=== PATIENT | male | born 1960 | race Caucasian/White ===

== ENCOUNTER 2019-02-12 08:48 | Day surgery (SDC) | payer BC ==
[2019-02-07 12:18] VITALS: BMI 25.0
[~2019-02-12 08:48] MED LIST: LIDOCAINE 1% 20 ML VIAL (10MG/ML) FOR IV START INTRADERMA PRN
[2019-02-12] MEDS: LACTATED RINGERS 1,000 ML IV SCH ×2 (09:10→09:38)
[2019-02-12 09:19] VITALS: RESP 16; TEMP 97.1
[2019-02-12] MEDS ORDERED: PROPOFOL 10 MG/ML 20 ML VIAL IV ONE (09:42)
--- NOTE | 2019-02-12 10:12 | P.PCN ---
Date of Procedure: 02/12/19 Description of Procedure: BRIEF HISTORY: 58-year-old male who presents for outpatient colonoscopy for screening. Denies any change in bowel habits, abdominal pain or blood per rectum. No family history of colon cancer. Last colonoscopy approximately 4 years ago per his recollection. He does report polyps in the past. PROCEDURE PERFORMED: Colonoscopy with polypectomy. PREOPERATIVE DIAGNOSIS: Screening for malignant neoplasm of the colon, last colonoscopy approximately 4 years ago per his recollection. ESTIMATED BLOOD LOSS: Minimal. IV sedation per Anesthesia. PROCEDURE: After informed consent was obtained, the patient, was brought into the endoscopy unit. IV sedation was administered by Anesthesia under continuous monitoring. Digital rectal examination was normal. Initially the Olympus CF-190 flexible video colonoscope was then inserted in the rectum, gradually advanced into the cecum without any difficulty. Careful examination was performed as the scope was gradually being withdrawn. Ileocecal valve and the appendiceal orifice were visualized and appeared normal. Prep was excellent. Mucosa of the cecum, ascending colon, transverse colon, descending colon, sigmoid colon, and rectum appeared normal. A diminutive 3 mm descending colon polyp completely removed with cold forcep polypectomy. Multiple diminutive hyperplastic-appearing polyps in the sigmoid colon and rectum removed with cold forcep polypectomy. Retroflexion was performed in the rectum and no lesions were seen. The patient tolerated the procedure well. IMPRESSION: Diminutive descending colon polyp removed with cold forcep polypectomy. Multiple hyperplastic-appearing polyps removed from the sigmoid colon and rectum with cold forcep polypectomy. RECOMMENDATIONS: Findings of this examination were discussed with the patient and his sister. Okay to resume diet and medications. Anticipate repeat colonoscopy in 5 years for personal history of colon polyps. Await pathology from polypectomies.
[2019-02-12 10:34] VITALS: BP 124/77; PULSE 64
== END 2019-02-12 11:54 | disposition home or self-care (01) ==
LOC: ORWHC2ENDO 08:48
PROVIDERS: ATTEND Internal Medicine
DX: Z12.11 Encounter for screening for malignant neoplasm of colon (principal); D12.4 Benign neoplasm of descending colon; K63.5 Polyp of colon; K62.1 Rectal polyp; Z86.010 Personal history of colon polyps; I10 Essential (primary) hypertension; F17.210 Nicotine dependence, cigarettes, uncomplicated; G43.909 Migraine, unspecified, not intractable, without status migrainosus; Z87.311 Personal history of (healed) other pathological fracture; Z97.2 Presence of dental prosthetic device (complete) (partial); Z79.899 Other long term (current) drug therapy
CPT/HCPCS: 88305; 45380; J2704

== ENCOUNTER 2019-08-29 14:13 | Emergency (ER) | payer BC ==
[2019-08-29] MEDS ORDERED: HYDROcodone/APAP 5-325MG 1 EACH TAB PO STA (14:47)
[2019-08-29] MEDS ORDERED: KETOROLAC 60 MG/2 ML VIAL IM STA (14:47)
[2019-08-29] MEDS ORDERED: ORPHENADRINE 30 MG/ML 2 ML VIAL IM STA (14:48)
--- NOTE | 2019-08-29 14:51 | ED ---
Lower Extremity Injury HPI - General Chief Complaint: Extremity Injury, Lower Stated Complaint: R Hip Pain Time Seen by Provider: 08/29/19 14:38 Source: patient, RN notes reviewed, old records reviewed Mode of arrival: wheelchair Limitations: no limitations - History of Present Illness Initial Comments: Patient is a 5-year-old male who presents emergency Department today with 1 month of right hip and lower back pain after lifting cement blocks. Patient reports he followed with his primary care doctor and was given muscle relaxers and steroids. He reports he isn't taking them that the pain is continuing to persist. He states that on Tuesday it was more severe and he laid on the couch most of the day. Patient reports Tuesday is feeling better and then decided to mow the lawn and yard work. He states since that time has had worsening pain. He saw his PCP on Tuesday and was prescribed his medications. He states that the pain seems to not be managed with those and was sent here for further evaluation. He denies saddle anesthesia. Denies any abdominal pain, nausea or vomiting. - Related Data Home Medications Medication Instructions Recorded Confirmed Ramipril 10 mg PO DAILY 02/07/19 02/12/19 Previous Rx's Medication Instructions Recorded Acetaminophen with Codeine 1 tab PO Q6H PRN 3 Days #12 tab 08/29/19 [Tylenol w/codeine #3] Allergies Allergy/AdvReac Type Severity Reaction Status Date / Time No Known Allergies Allergy Verified 08/29/19 14:35 Review of Systems ROS Statement: Those systems with pertinent positive or pertinent negative responses have been documented in the HPI. ROS Other: All systems not noted in ROS Statement are negative. Past Medical History Past Medical History: Hypertension Additional Past Medical History / Comment(s): MIGRAINE, SINUS ISSUES. HX COMPRESSION FX IN BACK 2014 History of Any Multi-Drug Resistant Organisms: None Reported Past Surgical History: Appendectomy, Tonsillectomy Past Anesthesia/Blood Transfusion Reactions: No Reported Reaction Past Psychological History: No Psychological Hx Reported Smoking Status: Current every day smoker Past Alcohol Use History: Occasional Past Drug Use History: None Reported - Past Family History Mother Family Medical History: No Reported History General Exam - General Exam Comments Initial Comments: 59 yo male, no distress. Limitations: no limitations General appearance: alert, in no apparent distress Head exam: Present: atraumatic Eye exam: Present: normal appearance, PERRL, EOMI. Absent: scleral icterus, conjunctival injection, periorbital swelling ENT exam: Present: normal exam, mucous membranes moist Neck exam: Present: normal inspection. Absent: tenderness, meningismus, lymphadenopathy Respiratory exam: Present: normal lung sounds bilaterally. Absent: respiratory distress, wheezes, rales, rhonchi, stridor Cardiovascular Exam: Present: regular rate, normal rhythm, normal heart sounds. Absent: systolic murmur, diastolic murmur, rubs, gallop, clicks GI/Abdominal exam: Present: soft, normal bowel sounds. Absent: distended, tenderness, guarding, rebound, rigid Extremities exam: Present: normal inspection, full ROM, normal capillary refill. Absent: tenderness, pedal edema, joint swelling, calf tenderness Back exam: Present: normal inspection, full ROM, tenderness (right hip and sciatic notch tenderness), CVA tenderness (R) Neurological exam: Present: alert, oriented X3, CN II-XII intact Psychiatric exam: Present: normal affect, normal mood Skin exam: Present: warm, dry, intact, normal color. Absent: rash Course Vital Signs 08/29/19 14:31 Temperature 98.2 F Pulse Rate 95 Respiratory 18 Rate Blood Pressure 146/97 O2 Sat by Pulse 98 Oximetry Medical Decision Making - Medical Decision Making Sean is a 5-year-old male presents emergency department today for complaints of lower back pain with radiation towards the right hip. He complains of pain from the lateral aspect of the hip all the way to the knee. Patient's symptoms started after heavy lifting a month ago. He was prescribed steroids and muscle relaxers by PCP but had persistent pain today. Patient at this time was given IM Toradol and Norflex. His pain is reproducible with movement. He has no saddle anesthesia. Lumbar spine x-ray shows evidence of degenerative changes mildly with no compression fracture. Hip and pelvis x-rays show no acute fracture. I discussed at this time continuing them a fractures and steroids. Advised Patient to use a short course of pain medication is given emergency department. Discussed appropriate follow-up with orthopedic symptoms continue persist. All questions answered. - Radiology Data Radiology results: report reviewed No fracture dislocation in the pelvis or right hip. Bilateral sacroiliitis is redemonstrated. Lumbar spine shows slight level convex sclerotic curvature centered and L3 level without evidence of acute fracture dislocation. Some straightening of the lumbar spine on the lateral images. Lumbar vertebral height and screens are normal. Vascular calcification over the abdominal aorta is redemonstrated. mild chronic compression fracture T12 endplate reversed lancing to previous computed tomography scan. Disposition Clinical Impression: Right hip pain, Lumbar back pain Disposition: HOME SELF-CARE Condition: Good Instructions (If sedation given, give patient instructions): Low Back Strain (ED), Sacroiliitis (ED) Additional Instructions: Please use medication as discussed and continue the muscle relaxer and anti- inflammatory medicine and steroids as prescribed. Recommended following up with employment training specialist.. Please follow up with family doctor if symptoms have not improved over the next two days. Please return to the emergency room if your symptoms increase or worsen or for any other concerns. Prescriptions: Acetaminophen with Codeine [Tylenol w/codeine #3] 1 tab PO Q6H PRN 3 Days #12 tab PRN Reason: Pain Is patient prescribed a controlled substance at d/c from ED?: Yes If prescribed controlled substance>3 days was MAPS reviewed?: Prescribed <3 Days If opioid is for acute pain is fill amount 7 days or less?: Yes If Rx opioid, was Start Talking consent form obtained?: Yes Referrals: Lesly Wilks DO [Primary Care Provider] - 1-2 days Poli Michael MD [STAFF PHYSICIAN] - 1-2 days Time of Disposition: 16:04
--- NOTE | 2019-08-29 15:36 | XR ---
EXAMINATION TYPE: XR lumbar spine 2 or 3V DATE OF EXAM: 08/29/2019 CLINICAL HISTORY: Pain after heavy lifting injury. TECHNIQUE: Frontal and lateral images of the lumbar spine are obtained. COMPARISON: CT September 10, 2014 FINDINGS: There are 5 lumbar type vertebral bodies redemonstrated. The lumbar spine redemonstrates slight levoconvex scoliotic curvature centered at L3 level without evidence of acute fracture or disl ocation. There is some straightening of the lumbar spine on the lateral images redemonstrated. Verteb ral body heights and disk space heights remain within normal limits. Vascular calcification overlying abdominal aorta is redemonstrated. Mild chronic compression fracture superior T12 endplate correspon ds to CT. IMPRESSION: No new acute fracture or dislocation is seen in the lumbar spine.
--- NOTE | 2019-08-29 15:38 | XR ---
EXAMINATION TYPE: XR Hip RT and AP Pelvis DATE OF EXAM: 08/29/2019 COMPARISON: CT September 10, 2014 HISTORY: Pelvic and right hip pain after lifting injury. TECHNIQUE: A single AP view of the pelvis is obtained. Two views of the right hip are obtained. FINDINGS: There is no acute fracture/dislocation evident in the pelvis. There is moderate narrowing and sclerosis bilateral sacroiliac joints greater inferiorly. Symmetric mild axial joint space loss i n both hips. Pubic symphysis is intact. The overlying soft tissue appears unremarkable. Two views of right hip show no acute fracture or dislocation. Stable small sclerotic focus femoral ne ck level corresponds to cortical based lesion coronal image 38 presumed benign. The overlying soft t issue is unremarkable. IMPRESSION: There is no acute fracture or dislocation in the pelvis or right hip. Bilateral sacroili itis redemonstrated.
[2019-08-29 16:36] VITALS: BP 151/85; PULSE 58; RESP 16; TEMP 98.7
== END 2019-08-29 16:30 | disposition home or self-care (01) ==
LOC: EC 14:13
DX: M25.551 Pain in right hip (principal); M54.5 Low back pain; I10 Essential (primary) hypertension; Z79.899 Other long term (current) drug therapy; F17.200 Nicotine dependence, unspecified, uncomplicated
CPT/HCPCS: 99284; 96372 ×2; 72100; 73502; J2360; J1885

== ENCOUNTER → 2019-11-12 | Outpatient (CLI) | payer BC ==
--- NOTE | 2019-11-14 06:19 | MR ---
EXAMINATION TYPE: MR lumbar spine wo con DATE OF EXAM: 11/12/2019 COMPARISON: Lumbar radiograph 08/29/2019 HISTORY: Low back and right hip pain TECHNIQUE: Multiplanar, multisequence images of the lumbar spine were acquired. There is mild straightening of the lumbar lordosis. Vertebral body heights are preserved. Vertebral b one marrow is normal in signal. Multilevel degenerative disc disease, as described by level below. Multilevel disc desiccation. Lower thoracic cord is normal in signal. Conus terminates normally at L1. At the level of L2-L3 there is a n intradural 7 x 7 x 6 mm round mass within the center of the canal adjacent to the nerve roots, whic h is T2 mildly hyperintense to the nerve roots and hypointense to CSF, with tiny T2 bright hyperinten se foci (501:18, 301:8), and T1 isointense (601:19). There is no significant displacement of the nerv e roots. Paraspinal soft tissues are unremarkable. Visualized upper sacroiliac joints appear intact. T12-L1: No posterior disc herniation, protrusion, or bulging. No canal stenosis. Foramina are patent bilaterally. L1-L2: No posterior disc herniation, protrusion, or bulging. No canal stenosis. Foramina are patent b ilaterally. L2-L3: No posterior disc herniation, protrusion, or bulging. No canal stenosis. Foramina are patent b ilaterally. L3-L4: Mild bulging effacing the ventral aspect of the thecal sac. No canal stenosis. Mild left neura l foramina narrowing. L4-L5: Mild bulging effacing the ventral aspect of the thecal sac. Ligamentum flavum thickening. No c anal stenosis. Mild right and moderate left neural foramina narrowing. L5-S1: Mild bulging. No canal stenosis. Mild right neural foraminal narrowing. IMPRESSION: 1. Intradural 7 mm round mass at the level of L2-L3 associated with the cauda equina nerve roots, wi thout nerve root displacement or significant mass effect. Follow-up MRI lumbar spine with intravenous contrast is recommended for further characterization. 2. Degenerative changes with no canal stenosis. Neural foramina narrowing of the inferior lumbar spi ne as above.
== END | disposition home or self-care (01) ==
LOC: RADMRIMAIN 10:20
PROVIDERS: ATTEND Family Medicine
DX: M48.061 Spinal stenosis, lumbar region without neurogenic claudication (principal); M48.07 Spinal stenosis, lumbosacral region; M47.816 Spondylosis without myelopathy or radiculopathy, lumbar region
CPT/HCPCS: 72148

== ENCOUNTER → 2019-11-26 | Outpatient (CLI) | payer BC ==
--- NOTE | 2019-11-27 05:49 | MR ---
EXAMINATION TYPE: MR lumbar spine w con DATE OF EXAM: 11/26/2019 COMPARISON: MRI lumbar spine November 12, 2019. Lumbar spine x-ray August 29, 2019. HISTORY: LBP, rt hip pain, abnormal recent MRI TECHNIQUE: Multiplanar, multisequence images of the lumbar spine is performed with IV contrast, utilizing 7.5 mL intravenous Gadavist FINDINGS: Postcontrast images show fairly homogeneous prominent enhancement of the oval well-defined lesion centered L2-L3 disc space measuring 8 x 8 x 7 mm axial image 20 and sagittal image 8. Lesion s lightly hypointense to muscle on T1 and hyperintense on T2-weighted images. Lesion appears separate f rom the nerve roots and is confirmed extra medullary intradural in location. There is also enhancement involving the posterior superior S1 endplate, suspected Schmorl node, reaso n for enhancement uncertain. Larger Schmorl node anterior superior T12 endplate with mild height loss redemonstrated. IMPRESSION: As above. There is 8 mm homogeneous enhancing lesion likely reflecting neoplasm, meningio ma is favored. Neurosurgical consultation is advised.
== END | disposition home or self-care (01) ==
LOC: RADMRIMAIN 21:44
PROVIDERS: ATTEND Family Medicine
DX: M89.9 Disorder of bone, unspecified (principal)
CPT/HCPCS: 72149; A9585

== ENCOUNTER → 2020-09-23 | Outpatient (CLI) | payer BC ==
--- NOTE | 2020-09-24 13:35 | P.ARTDOP ---
Arterial Doppler LOWER EXTREMITY ARTERIAL DOPPLER: DATE OF SERVICE: 09/23/2020 Reason for study: Left leg heaviness. Doppler waveforms: Multiphasic throughout on the right. Atypical throughout on the left.. Pulse volume recording: []. Pressure gradients: None on the right. Mild gradient proximally and across the knee. Ankle-brachial indices: Greater than 1 on the right and 0.8 on the left. Toe brachial indices: 0.96 on the right and 0.76 on the left on the right, Impression: The right side is normal. The left suggests mild left fem-pop disea se with possible iliac component.
== END | disposition home or self-care (01) ==
LOC: RADUSWWP 10:13
PROVIDERS: ATTEND Family Medicine
DX: I70.213 Atherosclerosis of native arteries of extremities with intermittent claudication, bilateral legs (principal)
CPT/HCPCS: 93923

== ENCOUNTER → 2021-10-30 | Outpatient (CLI) | payer BC ==
--- NOTE | 2021-10-30 12:59 | MR ---
EXAMINATION TYPE: MR iac wo/w con DATE OF EXAM: 10/30/2021 COMPARISON: NONE HISTORY: Hearing loss, more so right, tinnitus TECHNIQUE: Multiplanar, multisequence images of the brain and brainstem is performed without and with IV contras t, utilizing 8 mL intravenous Gadavist . Acoustic nerve disorder protocol. FINDINGS: Diffusion weighted images demonstrate no evidence of a recent infarct or other diffusion ab normality. The ventricular system and cisternal spaces are normal in size and appearance. The brain volume is age appropriate. Some small scattered foci of T2 hyperintensity are identified throughout t he white matter bilaterally. Approximately 15-20 scattered lesions are seen. The lesions are nonspeci fic in appearance and distribution. Midline structures demonstrate normal morphology. The craniocervical junction appears within normal limits. There is abnormal flow void right medial temporal region suggestive of vascular malformation possible AVM or venous angioma adjacent to tortuous vessel seen best on T2 axial images 13 and 14. In cidental dominant left vertebral artery filling the basilar artery. Globes are intact and visualized paranasal sinuses are clear. No suspicious fluid signal in the mastoid air cells bilaterally. Vestibulocochlear complexes are symm etric and felt within normal limits. No suspicious enhancing cerebellopontine angle mass is identifie d bilaterally. IMPRESSION: 1. No definitive finding to comfort patient's symptoms of right greater than left hearing loss and ti nnitus. Mild nonspecific white matter changes favor product of chronic small vessel ischemic change i n patient of this age. Vascular malformation medial right temporal region noted and may warrant furth er clinical and imaging workup if old outside contrast-enhanced CT or MRI is not available for direct comparison.
== END | disposition home or self-care (01) ==
LOC: RADMRIMAIN 11:36
PROVIDERS: ATTEND Otolaryngology
DX: H93.11 Tinnitus, right ear (principal)
CPT/HCPCS: 70553; A9585

== ENCOUNTER → 2022-03-09 | Outpatient (CLI) | payer BC ==
--- NOTE | 2022-03-09 13:05 | CT ---
EXAMINATION TYPE: CT angio abd aorta w/Runoff DATE OF EXAM: 03/09/2022 COMPARISON: CT chest abdomen and pelvis September 10, 2014 HISTORY: Claudication of bilateral legs. CT DLP: 1708.9 mGycm, Automated Exposure Control for Dose Reduction was Utilized. CONTRAST: CTA scan of the abdomen and pelvis with bilateral lower extremity runoff is performed without oral an d without and with IV Contrast, patient injected with 120ml mL of Isovue 370. Three-D reconstructed i mages were created on an independent workstation and reviewed. FINDINGS: Vascular: Patent celiac artery and SMA with narrowing around 50% at celiac artery origin sagittal iveth ge 83 and 82. Correlate for celiac artery compression syndrome. Patent bilateral single renal arterie s without significant plaque or stenosis. Patent IVETH. Moderate to severe mixed plaque in the abdomina l aorta extends into iliac branch vessels. There is mild to moderate calcified plaque in the right common iliac artery. There is severe plaque w ith complete occlusion shortly after origin of the left common iliac artery. Some reconstitution at t he bifurcation is seen. Moderate mixed plaque in the left external iliac artery is seen without signi ficant stenosis. No significant plaque or stenosis in the right external iliac artery. Mild to moderate mixed plaque in the common femoral artery without significant stenosis on the right. Mild to moderate mixed plaque left common femoral artery without significant stenosis. No significan t plaque or stenosis along the course of the right superficial femoral artery. No significant Plaque or stenosis in the right popliteal artery. Focal mild to moderate mixed plaque in the mid to distal l eft superficial femoral artery without significant stenosis. No significant plaque or stenosis along the left popliteal artery. Symmetric satisfactory bifurcation and trifurcation with good three-vessel flow along the mid to dist al leg in good two-vessel flow in the distal right leg. There is nonvisualized suspected occluded dis betsy left anterior tibial artery beginning at level of the distal talus when correlating with opposite right side. LUNG BASES: Coronary artery calcification in the distal RCA is seen. LIVER/GB: No significant abnormality is appreciated. PANCREAS: No significant abnormality is seen. SPLEEN: No significant abnormality is seen. ADRENALS: No significant abnormality is seen. KIDNEYS: No significant abnormality is seen. BOWEL: No significant abnormality is seen. PROSTATE/SEMINAL VESICLES: Enlarged prostate consistent with BPH. LYMPH NODES: No greater than 1cm abdominal or pelvic lymph nodes are appreciated. OSSEOUS STRUCTURES: No significant abnormality is seen. LOWER EXTREMITIES: Asymmetric moderate atrophy of the anteromedial left leg muscle beginning just bel ow the knee joint extending through the common axial image 47 for reference. OTHER: No significant additional abnormality is seen. IMPRESSION: 1. 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 Reconstitution and ed gin of the left external iliac artery noted. Poor visualized flow suspected complete occlusion of the distal left anterior tibial artery beginning just proximal to the ankle joint.
== END | disposition home or self-care (01) ==
LOC: RADCTMAIN 10:10
PROVIDERS: ATTEND Surgery
DX: I74.5 Embolism and thrombosis of iliac artery (principal); I74.3 Embolism and thrombosis of arteries of the lower extremities
CPT/HCPCS: 82565; 84520; 75635; 36415; Q9967

== ENCOUNTER → 2024-02-15 | Outpatient (CLI) | payer BC ==
--- NOTE | 2024-02-15 13:05 | CTL ---
EXAMINATION TYPE: CT Low Dose Lung DATE OF EXAM ORDERED: 02/15/2024 COMPARISON: None CLINICAL INDICATION: Male, 63 years old with history of F17.210 Nicotine dependence; PHH, personal to bacco use, Lung cancer screening, History of Smoking/tobacco use. TECHNIQUE: Low dose computed tomography scan was performed through the chest at 1 mm thick sections a nd reconstructed images in multiple planes at 1 mm and [address] DLP: [address] CTDI: 1.9 mGy Automated exposure control for dose reduction was used. CT DIAGNOSTIC QUALITY: Satisfactory FINDINGS: Nodules: Few pulmonary nodules with exams including a right lower lobe 2.9 mm nodule (series 6, image 29), lef t upper lobe 2.7 mm pulmonary nodule (series 6, image 13), lateral left upper lobe 3.7 mm pulmonary n odule (series 6, image 28), lateral left lower lobe pulmonary nodule measuring 4.1 mm (series 6, imag e 43). Lateral left lower lobe pulmonary nodule measuring 4.3 mm (series 6, image 50). LUNGS: COPD: Severity: Mild paraseptal emphysematous changes. Fibrosis: Severity: None Lymph nodes: None Other findings: Mild biapical pleural-parenchymal scarring. Reticular and nodular opacities identifie d within the right middle lobe. RIGHT PLEURAL SPACE: Effusion: None Calcification: None Thickening: None Pneumothorax: None LEFT PLEURAL SPACE: Effusion: None Calcification: None Thickening: None Pneumothorax: None HEART: Heart Size: Normal Coronary Calcification: Small Pericardial Effusion: None OTHER FINDINGS: Upper abdomen: None Bony thorax: Schmorl's node involving the superior endplate of the T12 vertebral body. Supraclavicular region: None Other: Ascending thoracic aortic aneurysm measuring up to 4.2 cm. Mild atherosclerotic calcification of the aorta and its branches. IMPRESSION: 1. Few scattered pulmonary nodules measuring less than 5 mm. 2. Reticular and nodular opacities within the right middle lobe suggesting an infectious/inflammator y process. 3. Ascending thoracic aortic aneurysm measuring 4.[address] LUNG RAD AND CT CHEST RECOMMENDATION: Lung-Rad 2 Benign Appearance or Behavior: Continue annual sc reening with LDCT in 12 months. S Modifier (other clinically significant findings): S [facility], , 02/15/2024 1:03 PM
== END | disposition home or self-care (01) ==
LOC: RADCTMAIN 11:09
PROVIDERS: ATTEND Family Medicine
DX: J43.9 Emphysema, unspecified (principal); F17.210 Nicotine dependence, cigarettes, uncomplicated; R91.8 Other nonspecific abnormal finding of lung field; I71.21 Aneurysm of the ascending aorta, without rupture
CPT/HCPCS: 71271

== ENCOUNTER → 2024-04-23 | Outpatient (CLI) | payer BC ==
[2024-04-23 12:41] LABS: African American GFR (CKD) >90 (>60 ml/min/1.73 sqM); Blood Urea Nitrogen 12 mg/dL (9-20); Non-African American GFR(CKD) >90 (>60 ml/min/1.73 sqM)
--- NOTE | 2024-04-23 17:56 | CT ---
EXAMINATION TYPE: CT abdomen pelvis w con DATE OF EXAM: 04/23/2024 1:49 PM COMPARISON: 03/09/2022 CLINICAL INDICATION: Male, 64 years old with history of R10.84 ABD PAIN, Abnormal weight loss, abdomi nal pain TECHNIQUE: Axial images were obtained from above the diaphragm to the pubic rami in the axial plane a t 5 mm thick sections. Reconstructed images are reviewed on the computer in the coronal plane. CONTRAST: 100 mL of Isovue 300. Study performed with Oral Contrast DLP: 740 mGycm, Automated exposure control for dose reduction was used. FINDINGS: Limited CT sections are obtained the lung bases. A infiltrate is present in the medial left lung bas e. Series 3 image 7. A small density is in the posterior lateral left lung base measuring 1.1 cm. Ser ies 3 image 14. This was not present previously. CT ABDOMEN: Liver: Normal Spleen: Normal Pancreas: Normal Adrenal glands: The adrenal glands are normal. Gallbladder: Normal Kidneys: No masses are evident. No hydronephrosis is present. No cysts are present. Delayed images were obtained through the kidneys, which remain unremarkable. Aorta: Mild fusiform prominence of 2.4 cm in the mid abdominal aorta. The aorta is calcified. Some m ild prominence of the distal right common iliac artery is present with a transverse diameter of 1.4 c m. Inferior vena cava: Normal. CT PELVIS: Loops of bowel within the abdomen and pelvis are normal. Large amount of fecal debris is within the ascending colon region. Transverse and descending colon appear normal. There are loops of bowel whi ch are incompletely distended or lack oral contrast limiting their evaluation. Appendix: Not clearly identified. No suspicious dilated tubular structure or inflammatory change evid ent. Urinary bladder: Normal. Genitourinary structures: Prostate is prominent Osseous structures: No suspicious lytic or sclerotic lesions. IMPRESSION: 1. Fecal retention within the ascending colon region. Obstruction is not identified. 2. Density within the left posterior lateral region may be atelectasis not present 2021 comparison [facility], , 04/23/2024 5:54 PM
== END | disposition home or self-care (01) ==
LOC: RADCTMAIN 11:50
PROVIDERS: ATTEND Family Medicine
DX: K59.09 Other constipation (principal); R63.4 Abnormal weight loss
CPT/HCPCS: 82565; 84520; 74177; 36415; Q9967

== ENCOUNTER 2024-10-01 11:58 | Day surgery (SDC) | payer MEDICARE, BC ==
[2024-09-26 13:32] VITALS: BMI 20.5
[~2024-10-01 11:58] MED LIST changes: +LIDOCAINE 1% (10MG/ML) FOR IV START INTRADERMA PRN; -LIDOCAINE 1% 20 ML VIAL (10MG/ML) FOR IV START INTRADERMA PRN
[2024-10-01] MEDS: IV FLUID CONTINUATION 1,000 ML IV ONE (12:14)
[2024-10-01 12:27] VITALS: TEMP 98
[2024-10-01] MEDS: LACTATED RINGERS 1,000 ML IV SCH (12:27)
[2024-10-01] MEDS ORDERED: PROPOFOL 10 MG/ML 20 ML VIAL IV ONE (13:38)
--- NOTE | 2024-10-01 13:41 | P.GSHP ---
History of Present Illness H&P Date: 10/01/24 Chief Complaint: Screening colonoscopy This is a 64-year-old male presents today for screening colonoscopy. Past Medical History Past Medical History: Hyperlipidemia, Hypertension Additional Past Medical History / Comment(s): MIGRAINE, SINUS ISSUES. HX COMPRESSION FX IN BACK 2014. RLS History of Any Multi-Drug Resistant Organisms: None Reported Past Surgical History: Appendectomy, Tonsillectomy Additional Past Surgical History / Comment(s): COLONOSCOPY Past Anesthesia/Blood Transfusion Reactions: No Reported Reaction Smoking Status: Current every day smoker - Past Family History Mother Family Medical History: No Reported History Medications and Allergies Home Medications Medication Instructions Recorded Confirmed Type Acetaminophen [Tylenol Extra 1,000 mg PO Q8HR PRN 09/26/24 09/26/24 History Strength] Aspirin EC [Ecotrin Low Dose] 81 mg PO DAILY 09/26/24 09/26/24 History Rosuvastatin [Crestor] 10 mg PO HS 09/26/24 09/26/24 History Vitamin E (Dl,Tocopheryl Acet) 400 unit PO DAILY 09/26/24 09/26/24 History [Vitamin E (400 Iu = 180 mg)] amLODIPine BESYLATE/BENAZEPRIL 1 cap PO DAILY 09/26/24 09/26/24 History [amLODIPine BESYLATE/BENAZEPRIL 5-20 mg] rOPINIRole HCL [Requip] 0.5 mg PO HS 09/26/24 09/26/24 History Allergies Allergy/AdvReac Type Severity Reaction Status Date / Time No Known Allergies Allergy Verified 09/26/24 11:28 Surgical - Exam Vital Signs Temp Pulse Resp BP Pulse Ox 98 F 78 18 142/96 97 10/01/24 12:15 10/01/24 12:15 10/01/24 12:15 10/01/24 12:15 10/01/24 12:15 - General well developed, well nourished, no distress - Eyes PERRL - ENT normal pinna, normal nares - Neck no masses - Respiratory normal expansion - Cardiovascular Rhythm: regular - Abdomen Abdomen: soft, non tender Assessment and Plan Assessment: Perform screening colonoscopy
--- NOTE | 2024-10-01 14:01 | P.OP ---
Date of Procedure: 10/01/24 Preoperative Diagnosis: Screening colonoscopy Postoperative Diagnosis: N normal colonoscopy to right colon Tortuous colon Procedure(s) Performed: Colonoscopy Anesthesia: MAC Surgeon: Dioni Hylton Pathology: none sent Condition: stable Disposition: PACU Description of Procedure: The patient was placed on the endoscopy table in the lateral position. He received IV sedation. Digital rectal exam was performed. This revealed no abnormalities. The flexible colonoscope was then placed patient Anaspaz throughout the colon. The colonoscope was advanced to the right colon. However it could not be advanced secondary tortuosity bowel. This point scope withdrawn. The visualized right colon, transverse colon, descending colon and sigmoid colon appeared normal. The rectum is normal. The scope was withdrawn. The patient was scheduled for p barium enema to evaluate the nonvisualized colon.
[2024-10-01 14:34] VITALS: BP 105/66; PULSE 60; RESP 14
== END 2024-10-01 15:07 | disposition home or self-care (01) ==
LOC: ORWHC2ENDO 11:58
PROVIDERS: ATTEND Surgery
DX: Z12.11 Encounter for screening for malignant neoplasm of colon (principal); I10 Essential (primary) hypertension; E78.5 Hyperlipidemia, unspecified; F17.210 Nicotine dependence, cigarettes, uncomplicated; G25.81 Restless legs syndrome; G43.909 Migraine, unspecified, not intractable, without status migrainosus; Z90.89 Acquired absence of other organs; Z90.49 Acquired absence of other specified parts of digestive tract; Z79.82 Long term (current) use of aspirin; Z79.899 Other long term (current) drug therapy
CPT/HCPCS: J2704; G0121

== ENCOUNTER → 2024-10-02 | Outpatient (CLI) | payer MEDICARE, BC ==
--- NOTE | 2024-10-02 13:05 | FL ---
EXAMINATION TYPE: Fluoroscopic barium enema DATE OF EXAM: 10/02/2024 COMPARISON: CT abdomen and pelvis April 23, 2024 CLINICAL INDICATION: Female, 56 years old with history of R92.8 OTH ABN AND INCONCLUSIVE FINDINGS ON DX IMAG, incomplete colonoscopy one day earlier. TECHNIQUE: A double contrast barium enema study is performed. 1.26 minutes of fluoro time and 22 i mages obtained. TOTAL DAP = n/p. FINDINGS: Machine Carton Marker view of the abdomen shows overall non-obstructive bowel gas pattern. Enema study is performed. A successful filling to the cecum . Slightly suboptimal study due to redundancy of colon c ausing difficulty in contrast evacuation for adequate imaging for polyps. No evidence of any mass or large polyp, obstructing or constricting lesion throughout the colon. No significant diverticular di sease is noted. Appendix and terminal ileum were not refluxed. IMPRESSION: Successful filling to the cecum. No obstructing or constricting neoplasm. [facility], , 10/02/2024 1:03 PM
== END | disposition home or self-care (01) ==
LOC: RADFLMAIN 07:25
PROVIDERS: ATTEND Surgery
DX: Z12.11 Encounter for screening for malignant neoplasm of colon (principal); Q43.8 Other specified congenital malformations of intestine
CPT/HCPCS: 74270

== ENCOUNTER 2024-10-25 06:35 | Observation (INO) | payer MEDICARE, BC ==
[2024-10-25 06:51] LABS: Glucose,Whole Blood 116 mg/dL (70-110)
[2024-10-25] MEDS: SODIUM CHLORIDE 0.9% 1,500 ML IV ONE (07:05)
[2024-10-25 07:14] LABS: Basophils # (A) 0.13 10*3/uL (0.00-0.10); Basophils % (A) 1.5 %; Eosinophils # (A) 0.29 10*3/uL (0.04-0.35); Eosinophils % (A) 3.2 %; HCT 38.6 % (39.6-50.0); HGB 13.4 g/dL (13.0-17.0); Lymphocytes # (A) 3.69 10*3/uL (0.90-5.00); Lymphocytes % (A) 41.3 %; MCH 32.4 pg (27.0-32.0); MCHC 34.7 g/dL (32.0-37.0); MCV 93.2 fL (80.0-97.0); Monocytes # (A) 0.60 10*3/uL (0.20-1.00); Monocytes % (A) 6.7 %; Neutrophils # (A) 4.21 10*3/uL (1.80-7.70); Neutrophils % (A) 47.1 %; Platelet Count 189 10*3/uL (140-440); RBC 4.14 10*6/uL (4.40-5.60); RDW 12.3 % (11.5-14.5); WBC 8.94 10*3/uL (4.50-10.00)
--- NOTE | 2024-10-25 07:20 | ED ---
General Adult HPI - General Chief complaint: Fall Stated complaint: Syncope Time Seen by Provider: 10/25/24 06:48 Source: patient, EMS, RN notes reviewed Mode of arrival: EMS Limitations: no limitations - History of Present Illness Initial comments: 64-year-old male presenting to the emergency department via EMS with c-collar in place after a syncopal episode. Patient states that he woke up this morning in bed, felt nauseated, when he got up took a few steps and fell forward landing on his face and injurying his nose. He states that he did not trip and believes that he passed out. unaware of how long he was down for. He is currently complaining of pain to his nose. He is denying headache, neck pain, chest pain, difficulty breathing, abdominal pain. He states that he started a new medication yesterday for his restless leg syndrome. Denies blood thinner use. - Related Data Home Medications Medication Instructions Recorded Confirmed Aspirin EC [Ecotrin Low Dose] 81 mg PO DAILY 09/26/24 10/25/24 Rosuvastatin [Crestor] 10 mg PO HS 09/26/24 10/25/24 amLODIPine BESYLATE/BENAZEPRIL 1 cap PO DAILY 09/26/24 10/25/24 [amLODIPine BESYLATE/BENAZEPRIL 5-20 mg] Acetaminophen [Tylenol Arthritis] 650 mg PO Q6H PRN 10/25/24 10/25/24 Ipratropium-Albuterol Nebulize 3 ml INHALATION RT-QID PRN 10/25/24 10/25/24 [Duoneb 0.5 mg-3 mg/3 ml Soln] Pramipexole [Mirapex] 1 mg PO HS 10/25/24 10/25/24 Allergies Allergy/AdvReac Type Severity Reaction Status Date / Time No Known Allergies Allergy Verified 10/25/24 10:57 Review of Systems ROS Statement: Those systems with pertinent positive or pertinent negative responses have been documented in the HPI. ROS Other: All systems not noted in ROS Statement are negative. Past Medical History Past Medical History: Hyperlipidemia, Hypertension Additional Past Medical History / Comment(s): MIGRAINE, SINUS ISSUES. HX COMPRESSION FX IN BACK 2014. RLS History of Any Multi-Drug Resistant Organisms: None Reported Past Surgical History: Appendectomy, Tonsillectomy Additional Past Surgical History / Comment(s): COLONOSCOPY Past Anesthesia/Blood Transfusion Reactions: No Reported Reaction Past Psychological History: No Psychological Hx Reported Smoking Status: Current every day smoker Past Alcohol Use History: None Reported Past Drug Use History: None Reported - Past Family History Mother Family Medical History: No Reported History General Exam Limitations: no limitations Eye exam: Present: normal appearance, PERRL, EOMI. Absent: scleral icterus, conjunctival injection, periorbital swelling ENT exam: Present: other (anterior nasal bridge ecchymosis) Neck exam: Present: normal inspection. Absent: tenderness, meningismus, lymphadenopathy Respiratory exam: Present: normal lung sounds bilaterally. Absent: respiratory distress, wheezes, rales, rhonchi, stridor Cardiovascular Exam: Present: regular rate, normal rhythm, normal heart sounds. Absent: systolic murmur, diastolic murmur, rubs, gallop, clicks GI/Abdominal exam: Present: soft, normal bowel sounds. Absent: distended, tenderness, guarding, rebound, rigid Extremities exam: Present: normal inspection, full ROM, normal capillary refill. Absent: tenderness, pedal edema, joint swelling, calf tenderness Back exam: Present: normal inspection Course Vital Signs 10/25/24 10/25/24 10/25/24 06:39 06:54 08:17 Temperature 98.2 F Pulse Rate 56 L 54 L 77 Pulse Rate [ Frame Trimmer ] Respiratory 17 17 16 Rate Blood Pressure 90/61 74/53 123/71 Blood Pressure [Right Arm Sitting] Blood Pressure [Right Arm Standing] Blood Pressure [Right Arm Supine] O2 Sat by Pulse 98 98 98 Oximetry 10/25/24 10/25/24 10/25/24 09:10 09:12 09:15 Temperature Pulse Rate Pulse Rate [ 74 78 95 Frame Trimmer ] Respiratory 18 18 18 Rate Blood Pressure Blood Pressure 121/82 [Right Arm Sitting] Blood Pressure 108/83 [Right Arm Standing] Blood Pressure 124/74 [Right Arm Supine] O2 Sat by Pulse 98 99 97 Oximetry 10/25/24 10:36 Temperature Pulse Rate 84 Pulse Rate [ Frame Trimmer ] Respiratory 18 Rate Blood Pressure 122/80 Blood Pressure [Right Arm Sitting] Blood Pressure [Right Arm Standing] Blood Pressure [Right Arm Supine] O2 Sat by Pulse 97 Oximetry Medical Decision Making - Medical Decision Making Was pt. sent in by a medical professional or institution (, PA, SPECIAL NEEDS TUTOR, urgent care, hospital, or correction...) When possible be specific @ -No Did you speak to anyone other than the patient for history (EMS, parent, family, police, friend...)? What history was obtained from this source @ -No Did you review nursing and triage notes (agree or disagree)? Why? @ -I reviewed and agree with nursing and triage notes Were old charts reviewed (outside hosp., previous admission, EMS record, old EKG, old radiological studies, urgent care reports/EKG's, correction records)? Report findings @ -No old charts were reviewed Differential Diagnosis (chest pain, altered mental status, abdominal pain women, abdominal pain men, vaginal bleeding, weakness, fever, dyspnea, syncope, headache, dizziness, GI bleed, back pain, seizure, CVA, palpatations, mental health, musculoskeletal)? @ -Differential Syncope: Valvular disease, hypertrophic cardiomyopathy, pulmonary embolism, tamponade, tachycardia, bradycardia, MN, hypovolemia, hemorrhage, dissection, anemia, intracranial hemorrhage, seizure, hypoglycemia, carbon monoxide poisoning, this is not meant to be an all-inclusive list. EKG interpreted by me (3pts min.). @ -Completed at 645 sinus bradycardia with a noted first-degree AV block, ventricular rate of 45, TN interval of 243, QRS 94, QT 476, QTc 431. X-rays interpreted by me (1pt min.). @ -Chest x-ray no acute cardiopulmonary process or disease. CT interpreted by me (1pt min.). 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 min.). @ -None done What testing was considered but not performed or refused? (CT, X-rays, U/S, labs)? Why? @ -None What meds were considered but not given or refused? Why? @ -None Did you discuss the management of the patient with other professionals (professionals i.e. , PA, SPECIAL NEEDS TUTOR, lab, RT, psych nurse, social science instructor, rehanger, teacher, purchasing officer, nurse outreach case manager)? Give summary @ - spoke with Dr. Fink from [facility] was agreed to meet the patient for syncope. Was smoking cessation discussed for >3mins.? @ -No Was critical care preformed (if so, how long)? @ -No Were there social determinants of health that impacted care today? How? (Homelessness, low income, unemployed, alcoholism, drug addiction, transportati on, low edu. Level, literacy, decrease access to med. care, halfway, rehab)? @ -No Was there de-escalation of care discussed even if they declined (Discuss DNR or withdrawal of care, Hospice)? DNR status @ -No What co-morbidities impacted this encounter? (DM, HTN, Smoking, COPD, CAD, Cancer, CVA, ARF, Chemo, Hep., AIDS, mental health diagnosis, sleep apnea, morbid obesity)? @ -None Was patient admitted / discharged? Hospital course, mention meds given and route, prescriptions, significant lab abnormalities, going to OR and other pertinent info. @ -Admitted. 64-year-old male presenting to the ER via EMS with c-collar in place after a syncopal event that occurred while he was at home. Patient is hypotensive on arrival with a blood pressure 74/53. He is complaining of pain to the anterior nasal bridge. He is provided with 1500 cc of fluids. EKG is sinus bradycardia. Laboratory testing is remarkable for an elevated D-dimer of 3.88. CT of the chest reveals no evidence of PE. CT imaging of the brain, C- spine, and chest x-rays are unremarkable. Patient's blood pressure has improved after fluid administration with a repeat of 122/80. Patient has negative orthostatic vitals. Patient will be admitted for syncope evaluation with consult placed to cardiology. Case discussed with my attending Dr. Mayen. Patient is admitted to Dr. Fink from [facility]. Undiagnosed new problem with uncertain prognosis? @ -No Drug Therapy requiring intensive monitoring for toxicity (Heparin, Nitro, Insulin, Cardizem)? @ -No Were any procedures done? @ -No Diagnosis/symptom? @ -Syncope Acute, or Chronic, or Acute on Chronic? @ -Acute Uncomplicated (without systemic symptoms) or Complicated (systemic symptoms)? @ -Complicated Side effects of treatment? @ -No Exacerbation, Progression, or Severe Exacerbation? @ -No Poses a threat to life or bodily function? How? (Chest pain, USA, MN, pneumonia, PE, COPD, DKA, ARF, appy, cholecystitis, CVA, Diverticulitis, Homicidal, Suicidal, threat to staff... and all critical care pts) @ -No - Lab Data Result diagrams: 10/25/24 07:04 10/25/24 07:04 Lab Results 10/25/24 10/25/24 10/25/24 Range/Units 06:50 07:04 07:04 WBC 8.94 (4.50-10.00) 10*3/uL RBC 4.14 L (4.40-5.60) 10*6/uL Hgb 13.4 (13.0-17.0) g/dL Hct 38.6 L (39.6-50.0) % MCV 93.2 (80.0-97.0) fL MCH 32.4 H (27.0-32.0) pg MCHC 34.7 (32.0-37.0) g/dL Plt Count 189 (140-440) 10*3/uL MPV 10.5 (9.5-12.2) fL Immature Gran % (Auto) 0.2 % Neutrophils % 47.1 % Lymphocytes % 41.3 % Monocytes % 6.7 % Eosinophils % 3.2 % Basophils % 1.5 % Immature Gran # 0.02 (0.00-0.04) 10*3/uL Neutrophils # 4.21 (1.80-7.70) 10*3/uL Lymphocytes # 3.69 (0.90-5.00) 10*3/uL Monocytes # 0.60 (0.20-1.00) 10*3/uL Eosinophils # 0.29 (0.04-0.35) 10*3/uL Basophils # 0.13 H (0.00-0.10) 10*3/uL PT 11.3 (10.0-12.5) sec INR 1.0 (<1.2) APTT 19.1 L (22.0-30.0) sec D-Dimer 3.88 H (<0.60) mg/L FEU Sodium (137-145) mmol/L Potassium (3.5-5.1) mmol/L Chloride (98-107) mmol/L Carbon Dioxide (22-30) mmol/L Anion Gap mmol/L BUN (9-20) mg/dL Creatinine (0.66-1.25) mg/dL Est GFR (CKD-EPI)AfAm (>60 ml/min/1.73 sqM) Est GFR (CKD-EPI)NonAf (>60 ml/min/1.73 sqM) Glucose (74-99) mg/dL POC Glucose (mg/dL) 116 H (70-110) mg/dL POC Glu Technology Advisor ID Bennie Courtney Calcium (8.4-10.2) mg/dL Magnesium (1.6-2.3) mg/dL Total Bilirubin (0.2-1.3) mg/dL AST (17-59) U/L ALT (4-49) U/L Alkaline Phosphatase (38-126) U/L Creatine Kinase (55-170) U/L Troponin I (0.000-0.034) ng/mL Total Protein (6.3-8.2) g/dL Albumin (3.5-5.0) g/dL 10/25/24 10/25/24 Range/Units 07:04 07:04 WBC (4.50-10.00) 10*3/uL RBC (4.40-5.60) 10*6/uL Hgb (13.0-17.0) g/dL Hct (39.6-50.0) % MCV (80.0-97.0) fL MCH (27.0-32.0) pg MCHC (32.0-37.0) g/dL Plt Count (140-440) 10*3/uL MPV (9.5-12.2) fL Immature Gran % (Auto) % Neutrophils % % Lymphocytes % % Monocytes % % Eosinophils % % Basophils % % Immature Gran # (0.00-0.04) 10*3/uL Neutrophils # (1.80-7.70) 10*3/uL Lymphocytes # (0.90-5.00) 10*3/uL Monocytes # (0.20-1.00) 10*3/uL Eosinophils # (0.04-0.35) 10*3/uL Basophils # (0.00-0.10) 10*3/uL PT (10.0-12.5) sec INR (<1.2) APTT (22.0-30.0) sec D-Dimer (<0.60) mg/L FEU Sodium 139 (137-145) mmol/L Potassium 3.5 (3.5-5.1) mmol/L Chloride 104 (98-107) mmol/L Carbon Dioxide 24 (22-30) mmol/L Anion Gap 11 mmol/L BUN 15 (9-20) mg/dL Creatinine 0.89 (0.66-1.25) mg/dL Est GFR (CKD-EPI)AfAm >90 (>60 ml/min/1.73 sqM) Est GFR (CKD-EPI)NonAf >90 (>60 ml/min/1.73 sqM) Glucose 108 H (74-99) mg/dL POC Glucose (mg/dL) (70-110) mg/dL POC Glu Technology Advisor ID Calcium 9.1 (8.4-10.2) mg/dL Magnesium 2.0 (1.6-2.3) mg/dL Total Bilirubin 0.6 (0.2-1.3) mg/dL AST 24 (17-59) U/L ALT 18 (4-49) U/L Alkaline Phosphatase 77 (38-126) U/L Creatine Kinase 113 (55-170) U/L Troponin I <0.012 (0.000-0.034) ng/mL Total Protein 5.9 L (6.3-8.2) g/dL Albumin 3.8 (3.5-5.0) g/dL Disposition Clinical Impression: Syncope Disposition: ADMITTED IP TO THIS HOSP Referrals: Lesly Wilks DO [Primary Care Provider] - 1-2 days Decision to Admit Reason: Admit from EC Decision Date: 10/25/24 Decision Time: 09:45
[2024-10-25 07:21] LABS: ALT 18 U/L (4-49); AST 24 U/L (17-59); African American GFR (CKD) >90 (>60 ml/min/1.73 sqM); Albumin 3.8 g/dL (3.5-5.0); Alkaline Phosphatase 77 U/L (38-126); Anion Gap 11 mmol/L; Blood Urea Nitrogen 15 mg/dL (9-20); Calcium 9.1 mg/dL (8.4-10.2); Carbon Dioxide 24 mmol/L (22-30); Chloride 104 mmol/L (98-107); Creatine Kinase 113 U/L (55-170); Glucose 108 mg/dL (74-99); Magnesium 2.0 mg/dL (1.6-2.3); Non-African American GFR(CKD) >90 (>60 ml/min/1.73 sqM); Potassium 3.5 mmol/L (3.5-5.1); Sodium 139 mmol/L (137-145); Total Protein 5.9 g/dL (6.3-8.2)
[2024-10-25 07:36] LABS: INR 1.0 (<1.2); Prothrombin Time 11.3 sec (10.0-12.5)
--- NOTE | 2024-10-25 07:38 | XR ---
EXAMINATION TYPE: XR chest 2V DATE OF EXAM: 10/25/2024 7:32 AM COMPARISON: Chest radiographs from 09/10/2014 TECHNIQUE: XR chest 2V Frontal and lateral views of the chest. CLINICAL INDICATION:Male, 64 years old with history of syncope; FINDINGS: Lungs/Pleura: There is flattening of the diaphragm with increased lucency of the lungs. No evidence o f pneumothorax, pleural effusion or focal consolidation. Pulmonary vascularity: Unremarkable. Heart/mediastinum: Cardiomediastinal silhouette is unremarkable. Musculoskeletal: No acute osseous pathology. IMPRESSION: 1. No acute cardiopulmonary disease process. 2. COPD changes. [facility], , 10/25/2024 7:36 AM
[2024-10-25 08:21] LABS: Partial Thromboplastin Time 19.1 sec (22.0-30.0)
--- NOTE | 2024-10-25 08:21 | CT ---
EXAMINATION TYPE: CT brain cspine wo con, CT facial bones wo con CT DLP: 1145 mGycm, Automated exposure control for dose reduction was used. DATE OF EXAM: 10/25/2024 7:58 AM COMPARISON: MR IAC 10/30/2021, CT chest 08/28/2024, CT low-dose lung 02/15/2024 CLINICAL INDICATION:Male, 64 years old with history of syncope, fall; Syncope, Fall, Pain TECHNIQUE: Brain: Multiple axial CT images of the brain were obtained without IV contrast. Cspine: Axial CT images from the skull base to the inferior aspect of T2 we obtained without intraven ous contrast. Coronal and sagittal reformatted images were also reviewed. Facial bones; axial CT images of the facial bones were obtained without contrast and soft tissue and bone windows. Coronal and sagittal reformatted images were also reviewed. FINDINGS: Brain: Extra-axial spaces: No abnormal extra-axial fluid collections. Ventricular system: Within normal limits Cerebral parenchyma: No acute intraparenchymal hemorrhage or mass effect. The gonzales-white junction is well differentiated. Cerebellum: Unremarkable. Mass effect: No evidence of midline shift. Intracranial vasculature: unremarkable Soft tissues: Normal. Calvarium: No depressed skull fracture. Paranasal sinuses and mastoid air cells: Clear. Visualized orbits: Orbital contents are intact. Cervical spine: Fracture: None. Osseous structures: Unremarkable Vertebral alignment: Degenerative grade 1 retrolisthesis of C5 on C6. Spinal canal/Neural Foramina: No evidence of significant spinal canal narrowing. No evidence for sign ificant neural foraminal stenosis. Neck soft tissues: Prevertebral soft tissues are within normal limits. Other: The airway is patent. Biapical pleural-parenchymal scarring. Bilateral carotid bulb calcificat ions. Medial left upper lobe paraseptal emphysematous changes. Stable left upper lobe 2.3 mm pulmonar y nodule. No follow-up recommended. Facial Bones: There is no evidence of subluxation or dislocation, or significant soft tissue swelling. Bilateral na [place] bone fractures. No significant depression. The orbital contents are unremarkable. The temporal-ma ndibular joints appear symmetric. The visualized portion of the paranasal sinuses appear clear. IMPRESSION: 1. No acute intracranial process. 2. No evidence of cervical spine fracture. 3. Age-indeterminate bilateral nasal bone fractures without surrounding soft tissue edema. [facility], , 10/25/2024 8:18 AM
--- NOTE | 2024-10-25 09:04 | CT ---
EXAMINATION TYPE: CT chest angio for PE CT DLP: 260 mGycm, Automated exposure control for dose reduction was used. DATE OF EXAM: 10/25/2024 8:52 AM COMPARISON: Chest radiograph from same day. CT chest 08/28/2024, CT low-dose lung 02/15/2024 CLINICAL INDICATION:Male, 64 years old with history of syncope, elevated dimer; Syncope, elevated D-d ranjit. TECHNIQUE/CONTRAST: CTA scan of the thorax is performed with IV Contrast, patient injected with 100 ml mL of Isovue 370, pulmonary embolism protocol. MIP images are created and reviewed. FINDINGS: Pulmonary Artery: There is no evidence for a filling defect within the pulmonary vasculature to sugge st acute pulmonary embolism. The pulmonary artery is of normal size. Lungs/Pleura: Biapical pleural-parenchymal scarring. Mild paraseptal emphysematous changes. No pleura l effusion or pneumothorax. No focal consolidation. Few scattered pulmonary nodules which appear stab le. Sample includes a left anterior upper lobe 5.6 mm pulmonary nodule (series 406, image 82). No def initive new or enlarging pulmonary nodules. Airway: Large airways are patent. Heart: Size within normal limits.No pericardial effusion. Mild coronary artery calcifications present . Vasculature: Stable ascending thoracic aortic aneurysm measuring 4.1 cm. Stable aneurysmal dilatation of the aortic root measuring 4.7 cm. No evidence for dissection. Atherosclerotic calcification of th e aorta and its branches. Mediastinum: No gross evidence of adenopathy. Musculoskeletal: No acute osseous abnormalities. Schmorl's nodes involving the superior endplates of the T12 and T7 vertebral bodies. Soft Tissues: Unremarkable. Lower neck: No significant findings. Upper Abdomen: No significant findings. IMPRESSION: 1. No evidence of pulmonary embolism. 2. Few scattered stable pulmonary nodules dating back to 02/15/2024. According to Fleischner criteria in a low risk patient no follow up is recommended. In a high-risk patient consider optional CT chest 12 months. 3. Mild paraseptal emphysematous changes. 4. Stable ascending thoracic aortic aneurysm measuring 4.1 cm. Stable aneurysmal dilatation of the ao rtic root measuring 4.7 cm. [facility], , 10/25/2024 9:02 AM
[2024-10-25] MEDS ORDERED: NALOXONE 0.4 MG/ML 1 ML VIAL IV PRN (10:42)
--- NOTE | 2024-10-25 12:32 | P.CRDCN ---
History of Present Illness History of present illness: HISTORY OF PRESENT ILLNESS: This is a 64-year-old male with a past medical history significant for hypertension, hyperlipidemia, and restless leg syndrome. Patient does not follow with a type proof reproducer. We have been asked to see the patient in consultation for syncope. Patient examined at the bedside. Patient states he was started on a new medication for restless leg syndrome.. He states that he took 1 dose of this medication. A couple hours after he took it he reports feeling nauseated and diaphoretic. He got out of bed to go to the bathroom and fell. He does report loss of consciousness. He did hit his nose. He denied having any chest pain or pressure prior to this. Denied any dizziness or lightheadedness. He is a current cigarette smoker and smokes 1 pack/day. He denies any alcohol use. DIAGNOSTICS: - EKG reveals sinus mechanism with no signs of acute ischemia. - Chest xray negative for acute process. COPD changes. - Chest CT: Negative for pulmonary embolism. Stable ascending thoracic aortic aneurysm measuring 4.1 cm. 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 - No previous echocardiogram, stress test, or cardiac catheterization available in EMR for review REVIEW OF SYSTEMS: At the time of my exam: CONSTITUTIONAL: Denies fever or chills. HEENT: Denies blurred vision, vision changes, or eye pain. Denies hemoptysis CARDIOVASCULAR: Denies chest pain. Denies orthopnea. Denies PND. Denies palpitations RESPIRATORY: Denies shortness of breath. GASTROINTESTINAL: Denies abdominal pain. Denies nausea or vomiting. HEMATOLOGIC: Denies bleeding disorders. GENITOURINARY: Denies any blood in urine. SKIN: Denies pruitis. Denies rash. PHYSICAL EXAM: VITAL SIGNS: Reviewed. GENERAL: Well-developed in no acute distress. HEENT: Head is normocephalic. Pupils are equal, round. Sclerae anicteric. Mucous membranes of the mouth are moist. Neck supple. No JVD or thyromegaly LUNGS: Respirations even and unlabored. Lungs essentially clear to auscultation bilaterally. HEART: Regular rate and rhythm. S1 and S2 heard. ABDOMEN: Soft. Nondistended. Nontender. EXTREMITIES: Normal range of motion. No clubbing or cyanosis. Peripheral pulses intact. No lower extremity edema NEUROLOGIC: Awake and alert. Oriented x 3. ASSESSMENT: Syncope, suspect vasovagal with element of orthostatic hypotension History of hypertension History of hyperlipidemia History of restless leg syndrome Nicotine dependence, patient smokes 1 pack/day PLAN: Syncope likely related to vasovagal event Obtain 2D echo to assess cardiac structure and function Resume home cardiac medications Smoking cessation recommended Continue telemetry monitoring Further recommendations pending patient course Nurse practitioner note has been reviewed by physician. Signing provider agrees with the documented findings, assessment, and plan of care documented by TARE WORKER as a scribe. Past Medical History Past Medical History: Hyperlipidemia, Hypertension Additional Past Medical History / Comment(s): MIGRAINE, SINUS ISSUES. HX COMPRESSION FX IN BACK 2014. RLS History of Any Multi-Drug Resistant Organisms: None Reported Past Surgical History: Appendectomy, Tonsillectomy Additional Past Surgical History / Comment(s): COLONOSCOPY Past Anesthesia/Blood Transfusion Reactions: No Reported Reaction Past Psychological History: No Psychological Hx Reported Smoking Status: Current every day smoker Past Alcohol Use History: None Reported Past Drug Use History: None Reported - Past Family History Mother Family Medical History: No Reported History Medications and Allergies Home Medications Medication Instructions Recorded Confirmed Type Aspirin EC [Ecotrin Low Dose] 81 mg PO DAILY 09/26/24 10/25/24 History Rosuvastatin [Crestor] 10 mg PO HS 09/26/24 10/25/24 History amLODIPine BESYLATE/BENAZEPRIL 1 cap PO DAILY 09/26/24 10/25/24 History [amLODIPine BESYLATE/BENAZEPRIL 5-20 mg] Acetaminophen [Tylenol Arthritis] 650 mg PO Q6H PRN 10/25/24 10/25/24 History Ipratropium-Albuterol Nebulize 3 ml INHALATION RT-QID PRN 10/25/24 10/25/24 History [Duoneb 0.5 mg-3 mg/3 ml Soln] Pramipexole [Mirapex] 1 mg PO HS 10/25/24 10/25/24 History Allergies Allergy/AdvReac Type Severity Reaction Status Date / Time No Known Allergies Allergy Verified 10/25/24 10:57 Physical Exam Vitals: Vital Signs Temp Pulse Pulse Resp BP BP BP 10/25/24 10:36 84 18 122/80 10/25/24 09:15 95 18 108/83 10/25/24 09:12 78 18 121/82 10/25/24 09:10 74 18 10/25/24 08:17 77 16 123/71 10/25/24 06:54 54 L 17 74/53 10/25/24 06:39 98.2 F 56 L 17 90/61 BP Pulse Ox 10/25/24 10:36 97 10/25/24 09:15 97 10/25/24 09:12 99 10/25/24 09:10 124/74 98 10/25/24 08:17 98 10/25/24 06:54 98 10/25/24 06:39 98 Intake and Output 10/24/24 10/25/24 10/25/24 22:59 06:59 14:59 Other: Weight 70.307 kg Results 10/25/24 07:04 10/25/24 07:04 Cardiac Enzymes 10/25/24 10/25/24 Range/Units 07:04 07:04 AST 24 (17-59) U/L Troponin I <0.012 (0.000-0.034) ng/mL Coagulation 10/25/24 Range/Units 07:04 PT 11.3 (10.0-12.5) sec APTT 19.1 L (22.0-30.0) sec CBC 10/25/24 Range/Units 07:04 WBC 8.94 (4.50-10.00) 10*3/uL RBC 4.14 L (4.40-5.60) 10*6/uL Hgb 13.4 (13.0-17.0) g/dL Hct 38.6 L (39.6-50.0) % Plt Count 189 (140-440) 10*3/uL Comprehensive Metabolic Panel 10/25/24 Range/Units 07:04 Sodium 139 (137-145) mmol/L Potassium 3.5 (3.5-5.1) mmol/L Chloride 104 (98-107) mmol/L Carbon Dioxide 24 (22-30) mmol/L BUN 15 (9-20) mg/dL Creatinine 0.89 (0.66-1.25) mg/dL Glucose 108 H (74-99) mg/dL Calcium 9.1 (8.4-10.2) mg/dL AST 24 (17-59) U/L ALT 18 (4-49) U/L Alkaline Phosphatase 77 (38-126) U/L Total Protein 5.9 L (6.3-8.2) g/dL Albumin 3.8 (3.5-5.0) g/dL Current Medications Generic Name Dose Route Start Last Admin Trade Name Freq PRN Reason Stop Dose Admin Acetaminophen 650 mg 10/25/24 10:42 Acetaminophen Tab 325 Mg Tab PO Q6HR PRN Mild Pain or Fever > 100.5 Amlodipine Besylate 5 mg 10/26/24 09:00 Amlodipine 5 Mg Tab PO DAILY [facility] Aspirin 81 mg 10/26/24 09:00 Aspirin 81 Mg PO DAILY [facility] Atorvastatin Calcium 20 mg 10/25/24 21:00 Atorvastatin 20 Mg Tab PO HS [facility] Lisinopril 20 mg 10/26/24 09:00 Lisinopril 20 Mg Tab PO DAILY [facility] Naloxone HCl 0.2 mg 10/25/24 10:42 Naloxone 0.4 Mg/Ml 1 Ml Vial IV Q2M PRN Opioid Reversal Intake and Output 10/24/24 10/25/24 10/25/24 22:59 06:59 14:59 Other: Weight 70.307 kg 10/25/24 07:04 10/25/24 07:04
[2024-10-25] MEDS: ACETAMINOPHEN TAB 325 MG TAB PO PRN (13:48)
[2024-10-25] MEDS ORDERED: IPRATROPIUM-ALBUTEROL 3 ML NEB INHALATION PRN (14:56)
[2024-10-25] MEDS ORDERED: NON FORMULARY DRUG (Acetaminophen [Tylenol Arthritis] 650 MG Tablet) PO PRN (14:56)
[2024-10-25] MEDS: SODIUM CHLORIDE 0.9% 1,000 ML IV SCH (15:22)
[2024-10-25] MEDS: NICOTINE 21MG/24HR PATCH TRANSDERM SCH (18:30)
--- NOTE | 2024-10-25 18:35 | CA ---
Transthoracic Echo Report Name: Sean Huntley Age: 64 Gender: M : 1960 Exam Date: 10/25/2024 14:53 Exam Location: [facility] Ht (in): 73 Wt (lb): 155 Ordering Physician: Tammy Fang Attending/Referring Phys: [id number], Leoncio Fairing Worker Celeste Bennett RDCS Procedure CPT: Indications: Syncope Cardiac Hx: Technical Quality: Good Contrast 1: Total Dose (mL): Contrast 2: Total Dose (mL): MEASUREMENTS (Male / Female) Normal Values 2D ECHO LV Diastolic Diameter PLAX 3.6 cm 4.2 - 5.9 / 3.9 - 5.3 cm LV Systolic Diameter PLAX 2.7 cm IVS Diastolic Thickness 0.8 cm 0.6 - 1.0 / 0.6 - 0.9 cm LVPW Diastolic Thickness 1.1 cm 0.6 - 1.0 / 0.6 - 0.9 cm LV Relative Wall Thickness 0.5 RV Internal Dim ED PLAX 3.8 cm LA Systolic Diameter LX 2.8 cm 3.0 - 4.0 / 2.7 - 3.8 cm LV Diastolic Volume MOD 4C 70.9 cm??? LV Systolic Volume MOD 4C 23.4 cm??? LV Ejection Fraction MOD 4C 67.0 % LV Cardiac Index MOD 4C 1928.8 cm???/min???m??? LV Diastolic Length 4C 8.1 cm LV Systolic Length 4C 6.7 cm LV Diastolic Volume MOD 2C 82.5 cm??? LV Systolic Volume MOD 2C 27.8 cm??? LV Ejection Fraction MOD 2C 66.4 % LV Cardiac Index MOD 2C 2226.5 cm???/min???m??? LV Diastolic Length 2C 7.7 cm LV Systolic Length 2C 6.0 cm M-MODE Aortic Root Diameter MM 4.3 cm AV Cusp Separation MM 2.8 cm DOPPLER AV Peak Velocity 117.2 cm/s AV Peak Gradient 5.5 mmHg MV Area PHT 3.8 cm??? Mitral E Point Velocity 87.4 cm/s Mitral A Point Velocity 81.0 cm/s Mitral E to A Ratio 1.1 MV Deceleration Time 198.6 ms TR Peak Velocity 257.8 cm/s TR Peak Gradient 26.6 mmHg Right Ventricular Systolic Press 31.6 mmHg FINDINGS Left Ventricle Left ventricular ejection fraction is estimated at 55-60 %. Left ventricular cavity size normal. Left ventricular wall thickness normal. Normal left ventricular wall motion. Right Ventricle Right ventricular dilatation. Right ventricular systolic pressure within normal limits. Right Atrium Normal right atrial size. No right atrial thrombus or mass seen. Left Atrium Normal left atrial size. No left atrial thrombus or mass present. Mitral Valve Structurally normal mitral valve. No mitral stenosis, regurgitation or prolapse. Aortic Valve Trileaflet aortic valve. No aortic valve stenosis or regurgitation. Tricuspid Valve Structurally normal tricuspid valve. mild tricuspid regurgitation. Pulmonic Valve Structurally normal pulmonic valve. Trace pulmonic regurgitation. Pericardium No pericardial effusion. Aorta Mild aortic dilatation at the level of the sinuses of valsalva 43 mm CONCLUSIONS 1. Normal left ventricular size and systolic function 2. Mild tricuspid regurgitation no evidence of pulmonary hypertension Previewed by: Dr. Nixon Maciel MD (Electronically Signed) Final Date: 25 October 2024 18:34
[2024-10-25] MEDS: ATORVASTATIN 20 MG TAB PO SCH (20:53)
[2024-10-25] MEDS: HYDROcodone/APAP 5-325MG 1 EACH TAB PO PRN (20:57)
--- NOTE | 2024-10-26 00:11 | HP ---
HISTORY AND PHYSICAL CHIEF COMPLAINTS: Fall and syncope. HISTORY OF PRESENT ILLNESS: This 64-year-old gentleman with a past history of multiple medical problems, apparently was started on new medicine for the restless legs syndrome. The patient took 1 dose and this morning the patient was confused and the patient was weak. The patient went to the bathroom and fell and the patient was taken to [facility] for evaluation and treatment. The D-dimer was elevated at 3.88, but CTA of the chest did not show any evidence of pulmonary embolism, scattered pulmonary nodules and stable ascending thoracic aortic aneurysm was also noted. Patient admitted for evaluation and treatment. There is no history of fever, rigors, chills at this time. The CT of the brain was normal, aged indeterminate bilateral nasal bone fractures are noted. There is no history of fever, rigors, chills at this time. PAST MEDICAL HISTORY: History of hypertension, hyperlipidemia, restless legs syndrome. Rest of the chart was also reviewed. HOME MEDICATIONS: Crestor. Dose and rest of medications noted. ALLERGIES: None. FAMILY HISTORY: No history of heart disease or strokes in the family. SOCIAL HISTORY: Smoking. REVIEW OF SYSTEMS: Fourteen-point review of systems negative except as mentioned earlier. PHYSICAL EXAMINATION: VITAL SIGNS: Pulse is 88, blood pressure 150/80, respirations 18. CHEST: Clear to auscultation. CARDIOVASCULAR: S1, S2. ABDOMEN: Soft. Extremities: Legs: No edema. NERVOUS SYSTEM: Diffusely weak. FACE: Exam of the face, some nasal erythema and tenderness present from nasal fractures. LABORATORY DATA: Reviewed. ASSESSMENT: 1. Fall and syncope, possibly medication induced. 2. Elevated D-dimer at 3.8 with no evidence of pulmonary embolus. 3. Bilateral nasal fractures. 4. Restless legs syndrome. 5. Hypertension. 6. Hyperlipidemia. 7. Migraine. 8. History of nicotine dependence. RECOMMENDATIONS AND DISCUSSION: This 64-year-old gentleman presented with multiple complex medical issues. We will monitor the patient closely. Continue the current management and treatment plan. We will check orthostatic vitals. Follow closely with Cardiology. Continue with IV fluids. Continue rest of medications. Guarded prognosis. Further recommendations to follow. MMODL / IJN: [id number] /
[2024-10-26 05:16] LABS: Basophils # (A) 0.09 10*3/uL (0.00-0.10); Basophils % (A) 0.8 %; Eosinophils # (A) 0.23 10*3/uL (0.04-0.35); Eosinophils % (A) 2.0 %; HCT 41.0 % (39.6-50.0); HGB 14.1 g/dL (13.0-17.0); Lymphocytes # (A) 2.77 10*3/uL (0.90-5.00); Lymphocytes % (A) 24.3 %; MCH 32.2 pg (27.0-32.0); MCHC 34.4 g/dL (32.0-37.0); MCV 93.6 fL (80.0-97.0); Monocytes # (A) 0.93 10*3/uL (0.20-1.00); Monocytes % (A) 8.2 %; Neutrophils # (A) 7.34 10*3/uL (1.80-7.70); Neutrophils % (A) 64.4 %; Platelet Count 241 10*3/uL (140-440); RBC 4.38 10*6/uL (4.40-5.60); RDW 12.3 % (11.5-14.5); WBC 11.39 10*3/uL (4.50-10.00)
[2024-10-26 05:31] LABS: ALT 17 U/L (4-49); AST 21 U/L (17-59); African American GFR (CKD) >90 (>60 ml/min/1.73 sqM); Albumin 3.7 g/dL (3.5-5.0); Alkaline Phosphatase 78 U/L (38-126); Anion Gap 8 mmol/L; Blood Urea Nitrogen 7 mg/dL (9-20); Calcium 9.0 mg/dL (8.4-10.2); Carbon Dioxide 25 mmol/L (22-30); Chloride 105 mmol/L (98-107); Glucose 92 mg/dL (74-99); Non-African American GFR(CKD) >90 (>60 ml/min/1.73 sqM); Potassium 3.8 mmol/L (3.5-5.1); Sodium 138 mmol/L (137-145); Total Protein 5.9 g/dL (6.3-8.2)
[2024-10-26 08:14] VITALS: BP 135/82; PULSE 79; RESP 16; TEMP 97.9
[2024-10-26] MEDS: amLODIPine 5 MG TAB PO SCH (09:02)
[2024-10-26] MEDS: ASPIRIN 81 MG PO SCH (09:02)
--- NOTE | 2024-10-26 09:11 | P.PN ---
Subjective Progress Note Date: 10/26/24 This is a 64-year-old male with a past medical history significant for hypertension, hyperlipidemia, and restless leg syndrome. Patient does not follow with a magazine editor. We have been asked to see the patient in consultation for syncope. Patient examined at the bedside. Patient states he was started on a new medication for restless leg syndrome.. He states that he took 1 dose of this medication. A couple hours after he took it he reports feeling nauseated and diaphoretic. He got out of bed to go to the bathroom and fell. He does report loss of consciousness. He did hit his nose. He denied having any chest pain or pressure prior to this. Denied any dizziness or lightheadedness. He is a current cigarette smoker and smokes 1 pack/day. He denies any alcohol use. DIAGNOSTICS: - EKG reveals sinus mechanism with no signs of acute ischemia. - Chest xray negative for acute process. COPD changes. - Chest CT: Negative for pulmonary embolism. Stable ascending thoracic aortic aneurysm measuring 4.1 cm. 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 10/26/2024 Patient was seen and examined resting comfortably in bed. He is feeling better today. He has had no further nausea or vomiting. He has had no further syncopal episodes. He denies any chest pain, lightheadedness or dizziness. He has had no palpitations. Vital signs are stable. Echocardiogram showed normal LV systolic function with mild TR. PHYSICAL EXAM: VITAL SIGNS: Reviewed. GENERAL: Well-developed in no acute distress. HEENT: Head is normocephalic. Pupils are equal, round. Sclerae anicteric. Mucous membranes of the mouth are moist. Neck supple. No JVD or thyromegaly LUNGS: Respirations even and unlabored. Lungs essentially clear to auscultation bilaterally. HEART: Regular rate and rhythm. S1 and S2 heard. ABDOMEN: Soft. Nondistended. Nontender. EXTREMITIES: Normal range of motion. No clubbing or cyanosis. Peripheral pulses intact. No lower extremity edema NEUROLOGIC: Awake and alert. Oriented x 3. ASSESSMENT: Syncope, suspect vasovagal with element of orthostatic hypotension History of hypertension History of hyperlipidemia History of restless leg syndrome Nicotine dependence, patient smokes 1 pack/day PLAN: From cardiology's perspective patient likely had vasovagal episode. From our standpoint he is stable for discharge home. He will follow-up in the office in about 2 weeks. CASTING CARRIER note has been reviewed, I agree with a documented findings and plan of care. Patient was seen and examined. Objective - Vital Signs Vital signs: Vital Signs Temp 97.9 F 10/26/24 07:00 Pulse 79 10/26/24 07:00 Resp 16 10/26/24 07:00 BP 135/82 10/26/24 07:00 Pulse Ox 98 10/26/24 07:00 FiO2 Intake & Output 10/25/24 10/26/24 10/26/24 18:59 06:59 18:59 Weight 70.307 kg Other: # Voids 3 # Bowel Movements 0 - Labs CBC & Chem 7: 10/26/24 05:08 10/26/24 05:08 Labs: Abnormal Lab Results - Last 24 Hours (Table) 10/26/24 10/26/24 Range/Units 05:08 05:08 WBC 11.39 H (4.50-10.00) 10*3/uL RBC 4.38 L (4.40-5.60) 10*6/uL MCH 32.2 H (27.0-32.0) pg BUN 7 L (9-20) mg/dL Total Protein 5.9 L (6.3-8.2) g/dL
[2024-10-26 12:30] VITALS: BMI 20.4
--- NOTE | 2024-10-26 13:37 | P.DS ---
Providers Date of admission: 10/25/24 09:39 Expected date of discharge: 10/26/24 Attending physician: Eric Fink MD Consults: 10/25/24 10:42 Consult Physician Routine Consulting Provider: [facility] Consult Reason/Comments: syncope Do you want consulting provider notified?: Yes, Notify in am Primary care physician: Lesly Wilks [place] Hospital Course: Discharge Diagnosis: Syncopal episode/vasovagal event Hypertension Hyperlipidemia Hospital Course: 64-year-old male presents to the ED with c-collar due to syncopal episode. Patient states he did not pass out, hit his nose. Patient was unaware he passed out for. Patient states this was the first occurrence of passing out. Patient recently started on pramipexole for restless leg syndrome, last dose was just a few hours before syncopal episode. Cardiology consulted. EKG revealed normal sinus rhythm, chest x-ray negative for acute changes. Chest CTA evident for no PE, stable aortic aneurysm and a stable aneurysmal dilation, pulm nodules consistent with the scan done in 02/15/2024. Echocardiogram evident for ejection fraction of 55 to 60%. Head CT show bilateral nose bone fractures. Patient initiated on DuoNeb therapy, aspirin 81, atorvastatin 20 mg, lisinopril 20 mg and amlodipine 5 mg, and IV fluid 75 cc/h. Patient is doing much better today, states he has been walking to and from the bathroom with no syncopal episodes. Orthostatics were completed and results were negative. Cardio cleared for discharge. Discussed with patient to follow-up with PCP in 1 to 3 days. Discussed to discontinue pramipexole, continue other home medications patient agreed. Patient medically stable for discharge. Vital signs reviewed and stable. Physical examination: Vital signs reviewed General: non toxic, no distress, appears at stated age, normal weight Eyes: EOMI, anicteric sclera, pupils equal round reactive to light ENT: Nose bloody, or swollen Mouth: no lip lesion, mucus membranes moist Cardiovascular: S1S2 reg, no murmur Lungs: CTA bilateral, no rhonchi, no rales, no accessory muscle use Abdominal: soft, nontender to palpation, no guarding Ext: muscle strength 5 out of 5 in all 4 extremities grossly, no gross muscle atrophy Neuro: CN II-XI grossly intact, no gross focal neuro deficits Psych: Alert, oriented to person, place, and time Patient was discharged on 10/26/2024. Tyler Gutierrez MD PGY-1 FM Dictation was produced using [employer] dictation software. please excuse any grammatical, word or spelling errors. Attestation: I have personally seen and examined the patient with Resident, reviewed the documentation and participated and agree with the assessment and plan as written. Sandro Gallardo MD Plan - Discharge Summary Discharge Rx Participant: Yes New Discharge Prescriptions: No Action Aspirin EC [Ecotrin Low Dose] 81 mg PO DAILY amLODIPine BESYLATE/BENAZEPRIL [amLODIPine BESYLATE/BENAZEPRIL 5-20 mg] 1 cap PO DAILY Rosuvastatin [Crestor] 10 mg PO HS Pramipexole [Mirapex] 1 mg PO HS Acetaminophen [Tylenol Arthritis] 650 mg PO Q6H PRN PRN Reason: Pain Or Fever > 100.5 Ipratropium-Albuterol Nebulize [Duoneb 0.5 mg-3 mg/3 ml Soln] 3 ml INHALATION RT-QID PRN PRN Reason: Shortness Of Breath Discharge Medication List Aspirin EC [Ecotrin Low Dose] 81 mg PO DAILY 09/26/24 [History] Rosuvastatin [Crestor] 10 mg PO HS 09/26/24 [History] amLODIPine BESYLATE/BENAZEPRIL [amLODIPine BESYLATE/BENAZEPRIL 5-20 mg] 1 cap PO DAILY 09/26/24 [History] Acetaminophen [Tylenol Arthritis] 650 mg PO Q6H PRN 10/25/24 [History] Ipratropium-Albuterol Nebulize [Duoneb 0.5 mg-3 mg/3 ml Soln] 3 ml INHALATION RT-QID PRN 10/25/24 [History] Pramipexole [Mirapex] 1 mg PO HS 10/25/24 [History] Follow up Appointment(s)/Referral(s): Nixon Maciel MD [STAFF PHYSICIAN] - 1 Week Lesly Wilks DO [Primary Care Provider] - 1-2 days Patient Instructions/Handouts: Nasal Fracture (DC), Syncope (DC) Activity/Diet/Wound Care/Special Instructions: Continue home medications as prescribed. Discontinue pramipexole until followed up and discussed with PCP, Dr. Wilks. Discharge Disposition: HOME SELF-CARE
== END 2024-10-26 13:24 | disposition home or self-care (01) ==
LOC: EC 06:35 → 1SOBS 09:39
PROVIDERS: ADMIT Internal Medicine; ATTEND Internal Medicine
DX: R55 Syncope and collapse (principal); S02.2XXA Fracture of nasal bones, initial encounter for closed fracture; I71.21 Aneurysm of the ascending aorta, without rupture; G43.909 Migraine, unspecified, not intractable, without status migrainosus; I10 Essential (primary) hypertension; E78.5 Hyperlipidemia, unspecified; G25.81 Restless legs syndrome; I44.0 Atrioventricular block, first degree; R91.8 Other nonspecific abnormal finding of lung field; R79.89 Other specified abnormal findings of blood chemistry; R03.1 Nonspecific low blood-pressure reading; R00.1 Bradycardia, unspecified; R11.0 Nausea; R61 Generalized hyperhidrosis; F17.210 Nicotine dependence, cigarettes, uncomplicated; Z79.82 Long term (current) use of aspirin; Z79.899 Other long term (current) drug therapy; W19.XXXA Unspecified fall, initial encounter
CPT/HCPCS: 36415; 70450; 70486; 71046; 71275; 72125; 80053; 82550; 83735; 84484; 85025; 85379; 85610; 85730; 93005; 93306; 96360; 99285